=== PATIENT | female | born 1940 | race Caucasian/White ===

== ENCOUNTER 2018-01-22 21:59 | Emergency (ER) | payer MEDICARE, OTHER ==
[~2018-01-22] VITALS: Ht 165.1 cm; Wt 68.0 kg
[~2018-01-22 21:59] MED LIST: ANAS1 PO; ASPI325 PO; AZO CRANBERRY1 EACH PO; Amlodipine Besyl5 MG PO; Aspirin EC325 MG PO; BUTASPCAFT; CIPR500 PO; CYCLOPHOSPHAMIDE1 GM PO; DOXORUBICIN2 MG/1 ML; Fish Oil 10001000 MG PO; INDERAL XL120 MG PO; Imitrex100 MG PO; LOSARTAN POTASS50 MG PO; Macrodantin50 MG PO; NITR100 PO; Norco 5-325 Ta1 EACH PO; Omeprazole20 M1 PO; PROM25 PO; SUMA25; SUMA25 PO; VENL150ER PO; VENLAFAXINE HC150 MG PO; VITAMIN D31000 UNIT PO; Verotin-Gr Cap1 EACH PO; ZEBUTAL 50-3251 EACH PO; Zofran4 MG PO
[2018-01-22 23:27] LABS: BASOPHILS ABSOLUTE AUTO 0.04 K/mm3 (0.00-0.23); BASOPHILS PERCENT AUTO 1 % (0-2); EOSINOPHILS ABSOLUTE AUTO 0.26 K/mm3 (0.00-0.68); EOSINOPHILS PERCENT AUTO 5 % (0-6); Hematocrit 39.4 % (33.0-51.0); Hemoglobin 12.6 g/dL (11.5-16.0); IMMATURE GRAN ABSOLUTE AUTO 0.01 K/mm3 (0.00-0.10); IMMATURE GRAN PERCENT AUTO 0 % (0-1); LYMPHOCYTES ABSOLUTE AUTO 1.49 K/mm3 (0.84-5.20); LYMPHOCYTES PERCENT AUTO 27 % (21-46); MONOCYTES ABSOLUTE AUTO 0.53 K/mm3 (0.16-1.47); MONOCYTES PERCENT AUTO 10 % (4-13); Mean Corpuscular HGB 28.8 pg (26.0-34.0); Mean Corpuscular Volume 90 fL (80-100); Mean Platelet Volume 9.4 fL (9.1-12.4); NEUTROPHILS ABSOLUTE AUTO 3.24 K/mm3 (1.96-9.15); NEUTROPHILS PERCENT AUTO 58 % (41-73); Platelet Count 184 K/mm3 (150-400); RDW Coefficient Variation 12.8 % (11.7-14.2); RDW Standard Deviation 42.6 fL (35.1-46.3); Red Blood Cell Count 4.37 M/mm3 (3.80-5.20); White Blood Cell Count 5.57 K/mm3 (4.00-11.30)
[2018-01-22 23:47] LABS: Alanine Aminotransfer (ALT/SGP 14 U/L (12-78); Albumin, Blood 3.4 g/dL (3.4-5.0); Albumin/Globulin Ratio 1.1 (0.8-1.8); Alk Phos 100 U/L (50-136); Anion Gap 8 mmol/L (6-16); Aspartate Aminotrans (AST/SGOT 10 U/L (12-37); Bilirubin, Total 0.2 mg/dL (0.1-1.0); Blood Urea Nitrogen 17 mg/dL (8-24); Bun/Creatinine Ratio 20.2 (12.0-20.0); CO2, Blood 28 mmol/L (21-32); Calcium, Blood 9.1 mg/dL (8.5-10.1); Chloride, Blood 107 mmol/L (98-108); Creatinine, Blood 0.84 mg/dL (0.40-1.00); Globulin, Blood 3.2 g/dL (2.2-4.0); Glomerular Filtration Rate >60 (60-); Glucose, Blood 108 mg/dL (70-99); Potassium, Blood 3.9 mmol/L (3.5-5.5); Sodium, Blood 143 mmol/L (136-145); Total Protein, Blood 6.6 g/dL (6.4-8.2)
[2018-01-23 00:06] LABS: Troponin I <0.015 ng/mL (0.000-0.040)
[2018-01-23 00:12] LABS: Bilirubin, Urine Neg (Neg); Blood, Urine 5+ (Neg); Glucose Qualitative, Urine Neg (Neg); Ketones, Urine Neg (Neg); Leukocyte Esterase, Urine 2+ (Neg); Nitrite, Urine Neg (Neg); Protein, Urine 2+ (Neg); Source, Urine Clean Catch; Urobilinogen, Urine NORM (Normal)
[2018-01-23 00:25] LABS: Appearance, Urine Hazy (Clear); Color, Urine Yellow (P-Yellow)
[2018-01-23 00:26] LABS: Amorphous Light (0-Heavy); Bacteria Mod /hpf; Red Blood Cells, Urine 25-50 /hpf (0-2); Squamous Epithelial Cells Few /hpf (Few); White Blood Cells, Urine 25-50 /hpf (0-5)
[2018-01-23] MEDS ORDERED: CEPH500 PO ×2 (00:29→00:36)
[2018-06-26] MEDS ORDERED: Omeprazole20 M1 (13:26)
[2018-06-26] MEDS ORDERED: CRANBERRY PLUS1 EAC1 (13:27)
[2018-06-26] MEDS ORDERED: TYLENOL325 MG (13:27)
[2018-07-03] MEDS ORDERED: Aspir 8181 MG (12:44)
== END 2018-01-23 00:46 | disposition home or self-care (01) ==
LOC: ER 21:59
PROVIDERS: Emergency Medicine
DX: N39.0 Urinary tract infection, site not specified (principal); Z88.0 Allergy status to penicillin; Z88.2 Allergy status to sulfonamides; Z88.5 Allergy status to narcotic agent; Z88.8 Allergy status to other drugs, medicaments and biological substances; Z79.899 Other long term (current) drug therapy; Z79.82 Long term (current) use of aspirin; Z85.3 Personal history of malignant neoplasm of breast; I10 Essential (primary) hypertension
CPT/HCPCS: 36415; 70450; 75809; 80053; 81001; 84484; 85025; 87086; 93005; 93010; 99284

== ENCOUNTER 2018-02-18 17:13 | Emergency (ER) | payer MEDICARE, OTHER ==
[~2018-02-18] VITALS: Ht 165.1 cm; Wt 63.5 kg
[~2018-02-18 17:13] MED LIST changes: +CEPH500 PO
[2018-02-18 18:16] LABS: BASOPHILS ABSOLUTE AUTO 0.03 K/mm3 (0.00-0.23); BASOPHILS PERCENT AUTO 0 % (0-2); EOSINOPHILS ABSOLUTE AUTO 0.05 K/mm3 (0.00-0.68); EOSINOPHILS PERCENT AUTO 1 % (0-6); Hematocrit 40.9 % (33.0-51.0); Hemoglobin 13.1 g/dL (11.5-16.0); IMMATURE GRAN ABSOLUTE AUTO 0.02 K/mm3 (0.00-0.10); IMMATURE GRAN PERCENT AUTO 0 % (0-1); LYMPHOCYTES ABSOLUTE AUTO 0.86 K/mm3 (0.84-5.20); LYMPHOCYTES PERCENT AUTO 9 % (21-46); MONOCYTES ABSOLUTE AUTO 0.27 K/mm3 (0.16-1.47); MONOCYTES PERCENT AUTO 3 % (4-13); Mean Corpuscular HGB 29.1 pg (26.0-34.0); Mean Corpuscular Volume 91 fL (80-100); Mean Platelet Volume 9.6 fL (9.1-12.4); NEUTROPHILS ABSOLUTE AUTO 8.17 K/mm3 (1.96-9.15); NEUTROPHILS PERCENT AUTO 87 % (41-73); Platelet Count 193 K/mm3 (150-400); RDW Coefficient Variation 12.7 % (11.7-14.2); RDW Standard Deviation 41.8 fL (35.1-46.3)
[2018-02-18 18:27] LABS: Alanine Aminotransfer (ALT/SGP 21 U/L (12-78); Albumin/Globulin Ratio 1.1 (0.8-1.8); Alk Phos 107 U/L (50-136); Anion Gap 9 mmol/L (6-16); Aspartate Aminotrans (AST/SGOT 15 U/L (12-37); Bilirubin, Total 0.9 mg/dL (0.1-1.0); Blood Urea Nitrogen 17 mg/dL (8-24); CO2, Blood 28 mmol/L (21-32); Calcium, Blood 9.3 mg/dL (8.5-10.1); Chloride, Blood 104 mmol/L (98-108); Creatinine, Blood 0.81 mg/dL (0.40-1.00); Globulin, Blood 3.5 g/dL (2.2-4.0); Glomerular Filtration Rate >60 (60-); Glucose, Blood 150 mg/dL (70-99); Potassium, Blood 4.1 mmol/L (3.5-5.5); Sodium, Blood 141 mmol/L (136-145); Total Protein, Blood 7.5 g/dL (6.4-8.2)
[2018-02-18 18:29] LABS: Source, Urine Clean Catch
[2018-02-18 18:53] LABS: Appearance, Urine Clear (Clear); Bilirubin, Urine Neg (Neg); Blood, Urine 2+ (Neg); Color, Urine Yellow (P-Yellow); Glucose Qualitative, Urine Neg (Neg); Ketones, Urine 2+ (Neg); Leukocyte Esterase, Urine 1+ (Neg); Nitrite, Urine Neg (Neg); Protein, Urine 2+ (Neg); Urobilinogen, Urine NORM (Normal)
[2018-02-18 19:06] LABS: Thyroid Stimulating Hormone 0.705 uIU/mL (0.360-4.800)
[2018-02-18 19:12] LABS: Bacteria Few /hpf; Squamous Epithelial Cells Few /hpf (Few)
[2018-02-18 19:13] LABS: Calcium Oxalate Crystals Few /hpf; Mucus Light (0-Heavy)
[2018-06-26] MEDS ORDERED: Omeprazole20 M1 (13:26)
[2018-06-26] MEDS ORDERED: TYLENOL325 MG (13:27)
[2018-06-26] MEDS ORDERED: CRANBERRY PLUS1 EAC1 (13:27)
[2018-07-03] MEDS ORDERED: Aspir 8181 MG (12:44)
== END 2018-02-19 01:05 | disposition short-term general hospital (02) ==
LOC: ER 17:13
PROVIDERS: Emergency Medicine
DX: I62.00 Nontraumatic subdural hemorrhage, unspecified (principal); Z88.0 Allergy status to penicillin; Z88.2 Allergy status to sulfonamides; Z88.5 Allergy status to narcotic agent; Z79.899 Other long term (current) drug therapy; Z88.8 Allergy status to other drugs, medicaments and biological substances; Z85.3 Personal history of malignant neoplasm of breast
CPT/HCPCS: 36415; 70450; 71045; 80053; 81001; 84443; 85025; 87086; 93005; 93010; 96374; 96375; 99285; J2405; J3010; P9612

== ENCOUNTER → 2019-02-12 | Outpatient (CLI) | payer MEDICARE, OTHER ==
[~2019-02-12] MED LIST changes: +Aspir 8181 MG; +CRANBERRY PLUS1 EAC1; +Omeprazole20 M1; +TYLENOL325 MG
[2019-02-16 14:08] LABS: HPV 16 Negative (Negative); HPV 18 Negative (Negative); HPV OTHER HR TYPES Negative (Negative)
== END | disposition home or self-care (01) ==
LOC: LAB 11:59 → LAB SHORT 11:59
PROVIDERS: Nurse Practitioner Women's Health
DX: Z12.72 Encounter for screening for malignant neoplasm of vagina (principal)
CPT/HCPCS: 87624; G0123

== ENCOUNTER → 2019-07-02 | Outpatient (CLI) | payer MEDICARE, OTHER | END | disposition home or self-care (01) | LOC: LAB 12:11 → LAB SHORT 12:11 | DX: R31.9 Hematuria, unspecified (principal) | CPT/HCPCS: 87086 ==

== ENCOUNTER 2019-07-09 15:02 | Emergency (ER) | payer MEDICARE, OTHER ==
[~2019-07-09] VITALS: Ht 162.6 cm; Wt 69.8 kg
[2019-07-09 16:09] LABS: BASOPHILS ABSOLUTE AUTO 0.06 K/mm3 (0.00-0.23); BASOPHILS PERCENT AUTO 1 % (0-2); EOSINOPHILS ABSOLUTE AUTO 0.11 K/mm3 (0.00-0.68); EOSINOPHILS PERCENT AUTO 1 % (0-6); Hematocrit 41.4 % (33.0-51.0); Hemoglobin 13.4 g/dL (11.5-16.0); IMMATURE GRAN ABSOLUTE AUTO 0.02 K/mm3 (0.00-0.10); IMMATURE GRAN PERCENT AUTO 0 % (0-1); LYMPHOCYTES ABSOLUTE AUTO 1.59 K/mm3 (0.84-5.20); LYMPHOCYTES PERCENT AUTO 19 % (21-46); MONOCYTES ABSOLUTE AUTO 0.57 K/mm3 (0.16-1.47); MONOCYTES PERCENT AUTO 7 % (4-13); Mean Corpuscular HGB Conc 32.4 g/dL (31.5-36.5); Mean Corpuscular Volume 93 fL (80-100); Mean Platelet Volume 9.9 fL (9.1-12.4); NEUTROPHILS ABSOLUTE AUTO 5.93 K/mm3 (1.96-9.15); NEUTROPHILS PERCENT AUTO 72 % (41-73); Platelet Count 199 K/mm3 (150-400); RDW Coefficient Variation 12.8 % (11.7-14.2); RDW Standard Deviation 43.7 fL (35.1-46.3); Red Blood Cell Count 4.46 M/mm3 (3.80-5.20); White Blood Cell Count 8.28 K/mm3 (4.00-11.30)
[2019-07-09 16:29] LABS: Albumin, Blood 3.6 g/dL (3.4-5.0); Albumin/Globulin Ratio 1.1 (0.8-1.8); Bilirubin, Total 0.7 mg/dL (0.1-1.0); Bun/Creatinine Ratio 17.8 (12.0-20.0); Calcium, Blood 9.3 mg/dL (8.5-10.1); Creatinine, Blood 1.07 mg/dL (0.40-1.00); Globulin, Blood 3.4 g/dL (2.2-4.0); Potassium, Blood 3.6 mmol/L (3.5-5.5)
[2019-07-09 17:17] LABS: Source, Urine Catheter
[2019-07-09 17:38] LABS: Bilirubin, Urine Neg (Neg); Blood, Urine 1+ (Neg); Glucose Qualitative, Urine Neg (Neg); Ketones, Urine Neg (Neg); Leukocyte Esterase, Urine 1+ (Neg); Nitrite, Urine Neg (Neg); Protein, Urine Neg (Neg); Specific Gravity, Urine 1.015 (1.003-1.022); Urobilinogen, Urine NORM (Normal)
[2019-07-09 17:45] LABS: Appearance, Urine Hazy (Clear); Color, Urine Yellow (P-Yellow)
[2019-07-09 17:46] LABS: Bacteria Few /hpf; Red Blood Cells, Urine 0-2 /hpf (0-2); Squamous Epithelial Cells Few /hpf (Few)
== END 2019-07-09 19:50 | disposition home or self-care (01) ==
LOC: ER 15:02
PROVIDERS: Physician Assistant
DX: R51 Headache (principal); I10 Essential (primary) hypertension; Z85.3 Personal history of malignant neoplasm of breast; Z98.2 Presence of cerebrospinal fluid drainage device
CPT/HCPCS: 36415; 70250; 70450; 71045; 74018; 80053; 81001; 85025; 87086; 93005; 93010; 96374; 99284-25; J2405; P9612

== ENCOUNTER → 2019-12-29 | Outpatient (CLI) | payer OTHER | END | disposition home or self-care (01) | LOC: LAB SHORT 18:06 → LAB 18:06 | DX: R32 Unspecified urinary incontinence (principal); R82.79 Other abnormal findings on microbiological examination of urine | CPT/HCPCS: 87077; 87086; 87186 ==

== ENCOUNTER → 2020-02-02 | Outpatient (CLI) | payer OTHER | LOC: LAB SHORT 18:10 → LAB 18:10 | DX: R82.79 Other abnormal findings on microbiological examination of urine (principal) | CPT/HCPCS: 87077; 87086; 87186 ==

== ENCOUNTER → 2020-03-11 | Outpatient (CLI) | payer OTHER | END | disposition home or self-care (01) | LOC: LAB SHORT 14:31 → LAB 14:31 | DX: R32 Unspecified urinary incontinence (principal); R82.79 Other abnormal findings on microbiological examination of urine | CPT/HCPCS: 87077; 87086; 87186 ==

== ENCOUNTER 2020-03-31 18:21 | Emergency (ER) | payer OTHER ==
[~2020-03-31] VITALS: Ht 162.6 cm; Wt 68.0 kg
[2020-03-31 19:06] LABS: BASOPHILS ABSOLUTE AUTO 0.05 K/mm3 (0.00-0.23); BASOPHILS PERCENT AUTO 0 % (0-2); EOSINOPHILS ABSOLUTE AUTO 0.04 K/mm3 (0.00-0.68); EOSINOPHILS PERCENT AUTO 0 % (0-6); Hematocrit 43.9 % (33.0-51.0); Hemoglobin 14.1 g/dL (11.5-16.0); IMMATURE GRAN ABSOLUTE AUTO 0.03 K/mm3 (0.00-0.10); IMMATURE GRAN PERCENT AUTO 0 % (0-1); LYMPHOCYTES ABSOLUTE AUTO 1.24 K/mm3 (0.84-5.20); LYMPHOCYTES PERCENT AUTO 11 % (21-46); MONOCYTES ABSOLUTE AUTO 0.43 K/mm3 (0.16-1.47); MONOCYTES PERCENT AUTO 4 % (4-13); Mean Corpuscular HGB 29.6 pg (26.0-34.0); Mean Corpuscular HGB Conc 32.1 g/dL (31.5-36.5); Mean Corpuscular Volume 92 fL (80-100); Mean Platelet Volume 9.6 fL (9.1-12.4); NEUTROPHILS ABSOLUTE AUTO 9.46 K/mm3 (1.96-9.15); NEUTROPHILS PERCENT AUTO 84 % (41-73); Platelet Count 217 K/mm3 (150-400); Red Blood Cell Count 4.77 M/mm3 (3.80-5.20); White Blood Cell Count 11.25 K/mm3 (4.00-11.30)
[2020-03-31 19:35] LABS: Alanine Aminotransfer (ALT/SGP 15 U/L (12-78); Albumin, Blood 3.4 g/dL (3.4-5.0); Albumin/Globulin Ratio 0.9 (0.8-1.8); Alk Phos 89 U/L (50-136); Anion Gap 10 mmol/L (6-16); Aspartate Aminotrans (AST/SGOT 20 U/L (12-37); Bilirubin, Total 0.5 mg/dL (0.1-1.0); Blood Urea Nitrogen 19 mg/dL (8-24); Bun/Creatinine Ratio 20.6 (12.0-20.0); CO2, Blood 20 mmol/L (21-32); Calcium, Blood 9.1 mg/dL (8.5-10.1); Chloride, Blood 114 mmol/L (98-108); Creatinine, Blood 0.92 mg/dL (0.40-1.00); Globulin, Blood 3.6 g/dL (2.2-4.0); Glomerular Filtration Rate >60 (60-); Glucose, Blood 179 mg/dL (70-99); Potassium, Blood 4.1 mmol/L (3.5-5.5); Sodium, Blood 144 mmol/L (136-145); Troponin I <0.015 ng/mL (0.000-0.040)
== END 2020-03-31 21:07 | disposition home or self-care (01) ==
LOC: ER 18:21
PROVIDERS: Physician Assistant
DX: I47.1 Supraventricular tachycardia (principal); Z88.0 Allergy status to penicillin; Z88.2 Allergy status to sulfonamides; Z88.8 Allergy status to other drugs, medicaments and biological substances; Z88.5 Allergy status to narcotic agent; Z79.899 Other long term (current) drug therapy; Z79.82 Long term (current) use of aspirin
CPT/HCPCS: 36415; 71045; 80053; 83735; 84484; 85025; 93005; 93010; 96374; 99285-25

== ENCOUNTER 2020-05-09 17:16 | Emergency (ER) | payer OTHER ==
[~2020-05-09] VITALS: Ht 162.6 cm; Wt 68.0 kg
== END 2020-05-09 19:45 | disposition home or self-care (01) ==
LOC: ER 17:16
DX: S09.90XA Unspecified injury of head, initial encounter (principal); Z88.0 Allergy status to penicillin; Z88.2 Allergy status to sulfonamides; Z88.5 Allergy status to narcotic agent; Z88.8 Allergy status to other drugs, medicaments and biological substances; Z79.899 Other long term (current) drug therapy; Z79.82 Long term (current) use of aspirin; V43.52XA Car driver injured in collision with other type car in traffic accident, initial encounter
CPT/HCPCS: 70450; 72125; 99284-25

== ENCOUNTER 2020-08-01 17:13 | Inpatient (IN) | payer OTHER ==
[~2020-08-01] VITALS: Ht 165.1 cm; Wt 70.0 kg
[~2020-08-01 17:13] MED LIST changes: -OMEP20ER PO
[2020-08-01 18:08] LABS: BASOPHILS ABSOLUTE AUTO 0.07 K/mm3 (0.00-0.23); BASOPHILS PERCENT AUTO 1 % (0-2); EOSINOPHILS ABSOLUTE AUTO 0.26 K/mm3 (0.00-0.68); EOSINOPHILS PERCENT AUTO 2 % (0-6); Hemoglobin 13.1 g/dL (11.5-16.0); IMMATURE GRAN ABSOLUTE AUTO 0.06 K/mm3 (0.00-0.10); IMMATURE GRAN PERCENT AUTO 1 % (0-1); LYMPHOCYTES ABSOLUTE AUTO 1.45 K/mm3 (0.84-5.20); LYMPHOCYTES PERCENT AUTO 11 % (21-46); MONOCYTES ABSOLUTE AUTO 0.73 K/mm3 (0.16-1.47); MONOCYTES PERCENT AUTO 6 % (4-13); Mean Corpuscular HGB 29.3 pg (26.0-34.0); Mean Corpuscular HGB Conc 31.2 g/dL (31.5-36.5); Mean Corpuscular Volume 94 fL (80-100); Mean Platelet Volume 9.7 fL (9.1-12.4); NEUTROPHILS ABSOLUTE AUTO 10.34 K/mm3 (1.96-9.15); NEUTROPHILS PERCENT AUTO 80 % (41-73); Platelet Count 206 K/mm3 (150-400); RDW Coefficient Variation 12.9 % (11.7-14.2); RDW Standard Deviation 44.4 fL (35.1-46.3); Red Blood Cell Count 4.47 M/mm3 (3.80-5.20); White Blood Cell Count 12.91 K/mm3 (4.00-11.30)
[2020-08-01] MEDS ORDERED: OMEP20ER PO (18:09)
[2020-08-01] MEDS ORDERED: CIPR500 PO (18:10)
[2020-08-01] MEDS ORDERED: ANAS1 PO (18:10)
[2020-08-01 18:25] LABS: Albumin, Blood 3.5 g/dL (3.4-5.0); Albumin/Globulin Ratio 0.7 (0.8-1.8); Bilirubin, Total 0.6 mg/dL (0.1-1.0); Bun/Creatinine Ratio 18.1 (12.0-20.0); Calcium, Blood 9.4 mg/dL (8.5-10.1); Creatinine, Blood 1.05 mg/dL (0.40-1.00); Globulin, Blood 4.9 g/dL (2.2-4.0); Potassium, Blood 3.9 mmol/L (3.5-5.5); Total Protein, Blood 8.4 g/dL (6.4-8.2)
--- NOTE | 2020-08-01 22:05 | NUR ---
ARRIVAL TO UNIT PT ARRIVED TO UNIT FROM ER VIA GURNEY. PT SLIDE FROM GURNEY TO BED MODERATE PAIN WITH TRANSFER, PAIN REPORTED AT 08/11. PT AA0X4 WITH ELEVATED BP. MEDICATED FOR PAIN AND FOLLOW UP BP DOWN TO 150 SYSTOLIC. PT STATES PAIN TOLERABLE. DENIES NAUSEA OR CHEST PAIN. TELE BOX PLACED. AND PT CURRENTLY SITITNG IN SEMI FOWLERS ON 3L OXYGEN.
--- NOTE | 2020-08-02 04:20 | NUR ---
SHIFT SUMMARY L RIB FX WITH SMALL PNEUMO. AA0X4, VSS. PT DENIES SOB OR CP DURING SHIFT. PAIN WITH MOVEMENT UPON ARRIVAL, MEDICATED PER EMAR AND PT STATES RELIEF WITH A PAIN LEVEL AT 7/10. LUNG SOUNDS SLIGHTLY DIMINISHED IN LLL, CLEAR OTHERWISE. NO BRUISING NOTED WITH SMALL ABRASION UNDER LEFT BREAST ON SIDE OF CHEST. PT HAS BEEN SLEEPING IN BED DURING ROUNDING, DENIES FURTHER NEEDS AT THIS TIME.
[2020-08-02 04:41] LABS: BASOPHILS ABSOLUTE AUTO 0.04 K/mm3 (0.00-0.23); BASOPHILS PERCENT AUTO 0 % (0-2); EOSINOPHILS ABSOLUTE AUTO 0.03 K/mm3 (0.00-0.68); EOSINOPHILS PERCENT AUTO 0 % (0-6); Hemoglobin 13.8 g/dL (11.5-16.0); IMMATURE GRAN ABSOLUTE AUTO 0.02 K/mm3 (0.00-0.10); IMMATURE GRAN PERCENT AUTO 0 % (0-1); LYMPHOCYTES ABSOLUTE AUTO 1.45 K/mm3 (0.84-5.20); LYMPHOCYTES PERCENT AUTO 14 % (21-46); MONOCYTES ABSOLUTE AUTO 0.62 K/mm3 (0.16-1.47); MONOCYTES PERCENT AUTO 6 % (4-13); Mean Corpuscular HGB 29.6 pg (26.0-34.0); Mean Corpuscular HGB Conc 31.4 g/dL (31.5-36.5); Mean Corpuscular Volume 94 fL (80-100); Mean Platelet Volume 9.6 fL (9.1-12.4); NEUTROPHILS PERCENT AUTO 80 % (41-73); Platelet Count 218 K/mm3 (150-400); RDW Coefficient Variation 12.9 % (11.7-14.2); RDW Standard Deviation 44.5 fL (35.1-46.3); Red Blood Cell Count 4.67 M/mm3 (3.80-5.20); White Blood Cell Count 10.56 K/mm3 (4.00-11.30)
[2020-08-02 04:56] LABS: Albumin, Blood 3.6 g/dL (3.4-5.0); Anion Gap 3 mmol/L (6-16); Blood Urea Nitrogen 18 mg/dL (8-24); Bun/Creatinine Ratio 17.6 (12.0-20.0); CO2, Blood 31 mmol/L (21-32); Calcium, Blood 9.6 mg/dL (8.5-10.1); Chloride, Blood 107 mmol/L (98-108); Creatinine, Blood 1.02 mg/dL (0.40-1.00); Glomerular Filtration Rate 56 (60-); Glucose, Blood 133 mg/dL (70-99); Phosphorus, Blood 5.2 mg/dL (2.5-4.9); Potassium, Blood 5.1 mmol/L (3.5-5.5); Sodium, Blood 141 mmol/L (136-145)
--- NOTE | 2020-08-02 05:15 | NUR ---
SPOKE TO DR RIVERA REGARDING PTS PAIN LEVEL AFTER RECEIVING HER PRN MEDS. PAIN REPORTED 8/10 AND GRIMACE ON PT'S FACE. NEW ORDERS RECIEVED FOR 25-50MCG PRN. WILL ADMINISTER AND CONTINUE TO MONITOR PT FOR PAIN.
--- NOTE | 2020-08-02 11:18 | NUR ---
Patient is sitting up in bed. Patient's face will grimace with every move or deep breath. Patient talks to me about her family, her latoya (Crystal) and her fall. Patient tells me many stories of her life growing up in [facility] up into the present. Patient does not speak of her medical history but seems to be encouraged by her own stories. Patient does not show any signs of spiritual distress but enjoys discussion centered around her [employer] Lat[employer]. I reinforce helpful attitudes and practices and provide therapeutic listening, companionship and prayer. Patient displays evidence of being encouraged. I will continue to remain available to patient and family.
[2020-08-02 11:32] LABS: Source, Urine Voided
[2020-08-02 11:36] LABS: Appearance, Urine Turbid (Clear); Bilirubin, Urine Neg (Neg); Blood, Urine 5+ (Neg); Color, Urine Yellow (P-Yellow); Glucose Qualitative, Urine Neg (Neg); Ketones, Urine Neg (Neg); Leukocyte Esterase, Urine 3+ (Neg); Nitrite, Urine Neg (Neg); Protein, Urine 3+ (Neg); Urobilinogen, Urine NORM (Normal)
[2020-08-02 11:47] LABS: Bacteria Mod /hpf; Red Blood Cells, Urine TNTC /hpf (0-2); Squamous Epithelial Cells Not Seen /hpf (Few); White Blood Cells, Urine TNTC /hpf (0-5)
--- NOTE | 2020-08-02 13:45 | NUR ---
OT IN TO SEE PT.
--- NOTE | 2020-08-02 15:18 | NUR ---
SUMMARY PT SITTING UP IN CHAIR. MEDICATED PT T/O SHIFT FOR PAIN TO L RIBS. REPORTS 06/10 TOLERABLE. PT WORKED W/PT AND OT. REPORTS MOST PAINFUL MOVING FROM LYING TO SITTING POSITION.
--- NOTE | 2020-08-02 16:02 | NUR ---
ASSUMED PT CARE AT THIS TIME
--- NOTE | 2020-08-03 06:29 | NUR ---
PT VSS, SATS >90% ON 1-2L NC. LUNGS DIM, RESP SHALLOW. PT ENC TO USE I/S. CREPITUS NOTED BELOW LEFT SCAPULA. REPEAT CXR COMPLETED THIS AM. PT REMAINS VERY PAINFUL W/MVMT, NEEDING ENCOURAGEMENT TO MOBILIZE. PO FLUIDS ENC W/ROUNDINGS.
--- NOTE | 2020-08-03 07:35 | NUR ---
pt reports pain with any movement in bed not in with breathing biox 96-97% on 2l nc shallow breaths pt req oain meds 0.5 mg dilaudid given pt drowsy
--- NOTE | 2020-08-03 08:42 | NUR ---
ASSUMED CARE OF PT AT THIS TIME. PT GIVEN MORNING MEDS. ENCOURAGING TO DEEP BREATHE AND USE I/S. CONT BIOX IN PLACE AND PT SATTING 96% ON 2L VIA NC. PT APPEARS TO BE UNCOMFORTABLE AND PAINFUL WITH DEEP BREATHS. WILL CONT TO MEDICATE FOR PAIN PRN.
--- NOTE | 2020-08-03 16:12 | NUR ---
SHIFT SUMMARY NO ACUTE CHANGES TODAY. PT DID WELL WITH PT/OT TODAY. PT STILL VERY PAINFUL WITH UPPER BODY MOBILITY. 0.5 MG IV DILAUDID FOR PAIN PRN. ENCOURAGING DEEP BREATHING AND I/S USE. CONT BIOX IN PLACE. 2L O2 VIA NC SATTING AT 96%. ASHLEY REG DIET. 1 MIN ASSIST TO BSC. DISCHARGE PLANNING FOR SNF. PT USES CALL LIGHT APPROPRIATELY.
--- NOTE | 2020-08-04 04:33 | NUR ---
SHIFT SUMMARY PT RESTED WELL T/O NIGHT. AAOX4/NEZ PERCE. PT WITH DISCOMFORT WITH MINIMAL MOVEMENT + DEEP BREATHING, DECREASED WITH 1 ROXICIDONE Q4H + 0.5MG IV DILAUDID X2 FOR BREAKTHROUGH. NO NAUSEA/EMESIS. BRUISING TO LEFT RIBS NOTED, NO ACUTE CHANGE THIS SHIFT. 2L VIA NC, ENCOURAGE IS USE. SCDs FOR DVT PREVENTION. PT CURRENTLY RESTING WITH CALL LIGHT IN REACH.
--- NOTE | 2020-08-04 15:24 | NUR ---
SHIFT SUMMARY: PATIENT HAS BEEN ALERT AND ORIENTED X4 THROUGHOUT SHIFT. SHE HAS HAD STABLE VITAL SIGNS AND HAS BEEN ON ROOM AIR WITH HER OXYGEN SATS BEING >90%. SHE HAS [place] SO SPEAKING LOUDLY HELPS TO COMMUNICATE WITH HER. PT IS AT PEAK PAIN WITH MOVEMENT TO THE LEFT, AND DEEP BREATHING. PAIN IS DECREASED WITH 1 NORCO TWO TIMES. SCDs ARE ON FOR DVT PREVENTION. PATIENT IS TALKING WITH IN THE ROOM. CALL LIGHT IS WITHIN REACH. WILL CONTINUE TO MONITOR UNTIL ONCOMING NIGHTSHIFT NURSE COME TO RECIEVE REPORT.
--- NOTE | 2020-08-05 05:13 | NUR ---
SHIFT SUMMARY PT RESTED WELL T/O NIGHT. AAOX4/WALES. DISCOMFORT CONTROLLED WITH 1 NORCO Q4-5H. NO NAUSEA/EMESIS. ON RA, LUNG SOUNDS CLEAR, DIMINISHED IN BASES BILATERALLY, ENCOURAGE DEEP BREATHING + IS USE. PT OOB 1 PERSON MODERATE ASSIST TO BSC. NO ACUTE CHANGES OVER NIGHT. PT CURRENTLY RESTING IN BED WITH CALL LIGHT IN REACH.
--- NOTE | 2020-08-05 13:48 | NUR ---
spoke with patient regarding last bm., pt states had a large formed bm on 08/04/20
--- NOTE | 2020-08-05 14:48 | NUR ---
report phoned to Tania FLANAGAN at [facility]. pt discharged with transport via [facility] at [phone]
--- NOTE | 2020-08-05 16:25 | NUR ---
PATIENT PHONE PROJECTS MANAGER FOUND IN ROOM POST DISCHARGE. PHONE CALL MADE AND SPOKE WITH FAMILY MEMBER SATINDER SCHULTZ WHO WILL HAVE PROJECTS MANAGER PICKED UP AT [facility]
== END 2020-08-05 14:46 | disposition home or self-care (01) | DRG 199 ==
LOC: ER 17:13 → SURS 17:14
PROVIDERS: Emergency Medicine; Family Medicine; Internal Medicine; ADMIT Surgery
DX: S27.0XXA Traumatic pneumothorax, initial encounter (principal); J96.01 Acute respiratory failure with hypoxia; S22.42XA Multiple fractures of ribs, left side, initial encounter for closed fracture; N17.9 Acute kidney failure, unspecified; N39.0 Urinary tract infection, site not specified; Z20.828 Contact with and (suspected) exposure to other viral communicable diseases; W19.XXXA Unspecified fall, initial encounter; I12.9 Hypertensive chronic kidney disease with stage 1 through stage 4 chronic kidney disease, or unspecified chronic kidney disease; N18.3 Chronic kidney disease, stage 3 (moderate); R54 Age-related physical debility; Z85.3 Personal history of malignant neoplasm of breast; K21.9 Gastro-esophageal reflux disease without esophagitis; F32.9 Major depressive disorder, single episode, unspecified
CPT/HCPCS: 36415; 71046; 71250; 74177; 80053; 80069; 81001; 84484; 85025; 86850; 86900; 86901; 87077; 87086; 87186; 94762; 96374; 96375; 96376; 97110; 97116; 97162; 97166; 97530; 97535; 99284-25; A9270; A9270-GY; G0378; J1170; J2270; J2405; J3010; Q9967; U0002

== ENCOUNTER → 2020-08-01 | Outpatient (CLI) | payer OTHER ==
[~2020-08-01] MED LIST changes: -Aspir 8181 MG; +Aspir 8181 MG PO; +OMEP20ER PO
== END ==
LOC: LAB SHORT 19:24 → LAB 19:24
DX: N39.498 Other specified urinary incontinence (principal); R82.998 Other abnormal findings in urine
CPT/HCPCS: 87077; 87086; 87147; 87186

== ENCOUNTER 2020-11-17 12:42 | Emergency (ER) | payer OTHER ==
[~2020-11-17] VITALS: Ht 162.6 cm; Wt 63.5 kg
[~2020-11-17 12:42] MED LIST changes: +OMEP20ER PO
[2020-11-17 13:40] LABS: BASOPHILS ABSOLUTE AUTO 0.06 K/mm3 (0.00-0.23); BASOPHILS PERCENT AUTO 0 % (0-2); EOSINOPHILS ABSOLUTE AUTO 0.17 K/mm3 (0.00-0.68); EOSINOPHILS PERCENT AUTO 1 % (0-6); Hematocrit 47.4 % (33.0-51.0); Hemoglobin 15.8 g/dL (11.5-16.0); IMMATURE GRAN ABSOLUTE AUTO 0.04 K/mm3 (0.00-0.10); IMMATURE GRAN PERCENT AUTO 0 % (0-1); LYMPHOCYTES PERCENT AUTO 12 % (21-46); MONOCYTES ABSOLUTE AUTO 0.74 K/mm3 (0.16-1.47); MONOCYTES PERCENT AUTO 5 % (4-13); Mean Corpuscular HGB 29.4 pg (26.0-34.0); Mean Corpuscular HGB Conc 33.3 g/dL (31.5-36.5); Mean Corpuscular Volume 88 fL (80-100); Mean Platelet Volume 9.6 fL (9.1-12.4); NEUTROPHILS ABSOLUTE AUTO 11.68 K/mm3 (1.96-9.15); NEUTROPHILS PERCENT AUTO 81 % (41-73); Platelet Count 262 K/mm3 (150-400); RDW Standard Deviation 42.1 fL (35.1-46.3); Red Blood Cell Count 5.38 M/mm3 (3.80-5.20); White Blood Cell Count 14.49 K/mm3 (4.00-11.30)
[2020-11-17 13:50] LABS: Albumin, Blood 3.9 g/dL (3.4-5.0); Bilirubin, Total 1.2 mg/dL (0.1-1.0); Bun/Creatinine Ratio 19.4 (12.0-20.0); Creatinine, Blood 0.98 mg/dL (0.40-1.00); Globulin, Blood 3.9 g/dL (2.2-4.0); Potassium, Blood 3.8 mmol/L (3.5-5.5); Total Protein, Blood 7.8 g/dL (6.4-8.2)
[2020-11-17 18:31] LABS: Source, Urine Clean Catch
[2020-11-17 18:33] LABS: Appearance, Urine Cloudy (Clear); Bilirubin, Urine Neg (Neg); Blood, Urine 4+ (Neg); Color, Urine Yellow (P-Yellow); Glucose Qualitative, Urine Neg (Neg); Ketones, Urine 3+ (Neg); Leukocyte Esterase, Urine 3+ (Neg); Nitrite, Urine Neg (Neg); Protein, Urine 3+ (Neg); Specific Gravity, Urine 1.015 (1.003-1.022); Urobilinogen, Urine NORM (Normal)
[2020-11-17 18:42] LABS: White Blood Cells, Urine TNTC /hpf (0-5)
[2020-11-17 18:43] LABS: Bacteria Mod /hpf; Squamous Epithelial Cells Few /hpf (Few)
[2020-11-17] MEDS ORDERED: AMIT10 PO (19:08)
[2020-11-17] MEDS ORDERED: CEPH500 PO (19:22)
[2020-11-17] MEDS ORDERED: ONDA4 PO (19:22)
== END 2020-11-17 19:37 | disposition home or self-care (01) ==
LOC: ER 12:42
PROVIDERS: Emergency Medicine; Physician Assistant
DX: N39.0 Urinary tract infection, site not specified (principal); Z88.0 Allergy status to penicillin; Z88.2 Allergy status to sulfonamides; Z88.1 Allergy status to other antibiotic agents; Z88.5 Allergy status to narcotic agent; Z79.82 Long term (current) use of aspirin; Z79.899 Other long term (current) drug therapy; Z87.442 Personal history of urinary calculi
CPT/HCPCS: 36415; 74177; 80053; 81001; 83690; 85025; 96361; 96374; 99285-25; J2405; J7030; Q9967

== ENCOUNTER → 2021-05-08 | Outpatient (CLI) | payer OTHER ==
[~2021-05-08] MED LIST changes: +AMIT10 PO; +ONDA4 PO
== END | disposition home or self-care (01) ==
LOC: LAB 19:21 → LAB SHORT 19:21
DX: N39.498 Other specified urinary incontinence (principal); R30.0 Dysuria
CPT/HCPCS: 87077; 87086; 87186

== ENCOUNTER → 2021-06-01 | Outpatient (CLI) | payer OTHER | END | disposition home or self-care (01) | LOC: LAB SHORT 19:08 → LAB 19:08 | DX: N39.0 Urinary tract infection, site not specified (principal) | CPT/HCPCS: 87077; 87086; 87186 ==

== ENCOUNTER → 2021-07-03 | Outpatient (CLI) | payer OTHER | END | disposition home or self-care (01) | LOC: LAB 13:30 → LAB SHORT 13:30 | DX: N30.01 Acute cystitis with hematuria (principal) | CPT/HCPCS: 87077; 87086; 87186 ==

== ENCOUNTER → 2021-07-20 | Outpatient (CLI) | payer OTHER | END | disposition home or self-care (01) | LOC: LAB SHORT 14:48 → LAB 14:48 | DX: N39.0 Urinary tract infection, site not specified (principal) | CPT/HCPCS: 87086 ==

== ENCOUNTER 2021-09-21 06:57 | Inpatient (IN) | payer OTHER ==
[~2021-09-21] VITALS: Ht 162.6 cm; Wt 74.1 kg
[2021-09-21 07:28] LABS: BASOPHILS ABSOLUTE AUTO 0.03 K/mm3 (0.00-0.23); BASOPHILS PERCENT AUTO 0 % (0-2); EOSINOPHILS PERCENT AUTO 0 % (0-6); Hematocrit 37.4 % (33.0-51.0); Hemoglobin 12.1 g/dL (11.5-16.0); IMMATURE GRAN ABSOLUTE AUTO 0.08 K/mm3 (0.00-0.10); IMMATURE GRAN PERCENT AUTO 1 % (0-1); LYMPHOCYTES ABSOLUTE AUTO 0.58 K/mm3 (0.84-5.20); LYMPHOCYTES PERCENT AUTO 4 % (21-46); MONOCYTES ABSOLUTE AUTO 0.75 K/mm3 (0.16-1.47); MONOCYTES PERCENT AUTO 5 % (4-13); Mean Corpuscular HGB 29.2 pg (26.0-34.0); Mean Corpuscular HGB Conc 32.4 g/dL (31.5-36.5); Mean Corpuscular Volume 90 fL (80-100); Mean Platelet Volume 9.9 fL (9.1-12.4); NEUTROPHILS ABSOLUTE AUTO 14.79 K/mm3 (1.96-9.15); NEUTROPHILS PERCENT AUTO 91 % (41-73); Platelet Count 144 K/mm3 (150-400); RDW Coefficient Variation 13.4 % (11.7-14.2); RDW Standard Deviation 45.1 fL (35.1-46.3); Red Blood Cell Count 4.14 M/mm3 (3.80-5.20); White Blood Cell Count 16.23 K/mm3 (4.00-11.30)
[2021-09-21 07:42] LABS: Albumin, Blood 2.7 g/dL (3.4-5.0); Albumin/Globulin Ratio 0.7 (0.8-1.8); Bun/Creatinine Ratio 17.2 (12.0-20.0); Calcium, Blood 8.6 mg/dL (8.5-10.1); Creatinine, Blood 1.28 mg/dL (0.40-1.00); Globulin, Blood 3.8 g/dL (2.2-4.0); Potassium, Blood 3.7 mmol/L (3.5-5.5); Total Protein, Blood 6.5 g/dL (6.4-8.2)
[2021-09-21 09:20] LABS: Source, Urine Clean Catch
[2021-09-21 09:30] LABS: Bilirubin, Urine Neg (Neg); Blood, Urine 5+ (Neg); Glucose Qualitative, Urine Neg (Neg); Ketones, Urine 4+ (Neg); Leukocyte Esterase, Urine 2+ (Neg); Nitrite, Urine Neg (Neg); Protein, Urine 3+ (Neg); Urobilinogen, Urine NORM (Normal)
[2021-09-21 10:04] LABS: Appearance, Urine Hazy (Clear); Bacteria Few /hpf; Color, Urine Yellow (P-Yellow); Red Blood Cells, Urine TNTC /hpf (0-2); Squamous Epithelial Cells Few /hpf (Few); White Blood Cells, Urine TNTC /hpf (0-5)
[2021-09-21] MEDS ORDERED: TRIM100 PO (11:34)
[2021-09-21] MEDS ORDERED: VENL150ER PO (12:30)
[2021-09-21] MEDS ORDERED: Amitriptyline H10 MG PO (12:31)
[2021-09-21] MEDS ORDERED: CEPH500 PO (12:32)
[2021-09-21] MEDS ORDERED: ONDA4ODT MM (12:33)
[2021-09-22 04:35] LABS: Hematocrit 34.9 % (33.0-51.0); Hemoglobin 11.3 g/dL (11.5-16.0); Mean Corpuscular HGB 29.7 pg (26.0-34.0); Mean Corpuscular HGB Conc 32.4 g/dL (31.5-36.5); Mean Corpuscular Volume 92 fL (80-100); Mean Platelet Volume 9.7 fL (9.1-12.4); Platelet Count 115 K/mm3 (150-400); RDW Coefficient Variation 13.6 % (11.7-14.2); RDW Standard Deviation 46.5 fL (35.1-46.3); Red Blood Cell Count 3.81 M/mm3 (3.80-5.20); White Blood Cell Count 15.33 K/mm3 (4.00-11.30)
[2021-09-22 04:54] LABS: Albumin, Blood 1.9 g/dL (3.4-5.0); Albumin/Globulin Ratio 0.5 (0.8-1.8); Bilirubin, Total 0.9 mg/dL (0.1-1.0); Bun/Creatinine Ratio 16.3 (12.0-20.0); Calcium, Blood 7.7 mg/dL (8.5-10.1); Creatinine, Blood 1.29 mg/dL (0.40-1.00); Globulin, Blood 3.6 g/dL (2.2-4.0); Magnesium, Blood 1.9 mg/dL (1.6-2.4); Potassium, Blood 3.6 mmol/L (3.5-5.5); Total Protein, Blood 5.5 g/dL (6.4-8.2)
[2021-09-22 05:06] LABS: BAND PERCENT MAN 16 % (0-8); BASOPHILS PERCENT MAN 0 % (0-2); EOSINOPHILS PERCENT MAN 0 % (0-6); LYMPHOCYTES ABSOLUTE MAN 0.45 K/mm3 (0.84-5.20); LYMPHOCYTES PERCENT MAN 3 % (21-46); MONOCYTES ABSOLUTE MAN 0.45 K/mm3 (0.16-1.47); MONOCYTES PERCENT MAN 3 % (4-13); NEUTROPHILS ABSOLUTE MAN 14.41 K/mm3 (1.96-9.15); SEG NEUTROPHILS PERCENT MAN 78 % (41-73); TOTAL CELLS COUNTED 100
--- NOTE | 2021-09-22 12:57 | NUR ---
CARE NOTE PT ALERT AND ORIENTED X 4. SHE IS PLEASANT AND COOPERATIVE W/ CARE BUT IS HARD OF HEARING. PT DENIED CHEST PAIN BUT REPORTED PAIN IN PELVIC AREA/LOWER ABD. PT IS AFEBRILE THIS AM., AFIB 70/80'S. THIS NURSE CONSULTED DR. NOE ABOUT TURNING DILTIAZEM DRIP OFF AT APPROX. 1130 WELL PREMEDICATING PT WITH BENADRYL PRIOR TO VANCOMYCIN ADMINISTRATION. DR STATED OK TO PREMEDICATE BUT MONITOR FOR SIGNS OF ALLERGY. PHARMACY MADE AWARE OF PLAN TO CONTINUE WITH VANCOMYCIN THERAPY. DR NOE ALSO STATED OK TO GIVE PROPANOLOL THIS AM TO CONTOL HR. PT HAD BLOODY URINE OUTPUT IN BEDSIDE COMMODE, AMBULATED TO COMMODE 2 PERSON SBA. PT NOW SLEEPING, CALL LIGHT IN REACH. WILL CONTINUE TO MONITOR.
--- NOTE | 2021-09-22 18:07 | NUR ---
SHIFT SUMMARY PT IS ALERT AND ORIENTED X 4 BUT HARD OF HEARING. HR AFIB IN 100-ONE TEENS. THIS NURSE UPDATED DR. NOE ABOUT HR STATUS AND PRN ORDER FOR LOPRESSOR IN EMAR FOR HR GREATER 125. THIS EVENING PT HAD FEVER OF 100.3 AND PAIN 7/10 IN PELVIC REGION. TYLENOL GIVEN AND PT IS NOW AFEBRILE, PAIN NOW 4/10. WILL CONTINUE TO MONITOR. PT HAS CONTINUED TO DENY CHEST PAIN/PRESSURE. NS INFUSING 125ML/HR PER EMAR ORDERS IN LEFT AC. ATTENDS IN PLACE, CLEAN AND DRY, PT UTILIZED BEDSIDE COMMODE 2 PERSON SBA. PT STATED THAT WHEN AT HOME AMBULATES ON OWN GREAT, THIS IS NOT HER NORMAL/BASELINE. CHANGES OF TEMPERATURE AND HR REPORTED TO DR. NOE. NO OTHER ACUTE CHANGES NOTED. WILL CONTINUE TO MONITOR UNTIL REPORT GIVEN.
[2021-09-23 04:27] LABS: BASOPHILS ABSOLUTE AUTO 0.02 K/mm3 (0.00-0.23); BASOPHILS PERCENT AUTO 0 % (0-2); Hematocrit 30.7 % (33.0-51.0); Hemoglobin 10.1 g/dL (11.5-16.0); LYMPHOCYTES ABSOLUTE AUTO 0.69 K/mm3 (0.84-5.20); LYMPHOCYTES PERCENT AUTO 6 % (21-46); MONOCYTES ABSOLUTE AUTO 0.66 K/mm3 (0.16-1.47); MONOCYTES PERCENT AUTO 6 % (4-13); Mean Corpuscular HGB 29.7 pg (26.0-34.0); Mean Corpuscular HGB Conc 32.9 g/dL (31.5-36.5); Mean Corpuscular Volume 90 fL (80-100); Mean Platelet Volume 10.1 fL (9.1-12.4); Platelet Count 102 K/mm3 (150-400); RDW Coefficient Variation 13.6 % (11.7-14.2); RDW Standard Deviation 44.9 fL (35.1-46.3); White Blood Cell Count 12.05 K/mm3 (4.00-11.30)
[2021-09-23 04:34] LABS: EOSINOPHILS ABSOLUTE AUTO 0.03 K/mm3 (0.00-0.68); EOSINOPHILS PERCENT AUTO 0 % (0-6); IMMATURE GRAN ABSOLUTE AUTO 0.04 K/mm3 (0.00-0.10); IMMATURE GRAN PERCENT AUTO 0 % (0-1); NEUTROPHILS ABSOLUTE AUTO 10.61 K/mm3 (1.96-9.15); NEUTROPHILS PERCENT AUTO 88 % (41-73)
[2021-09-23 04:40] LABS: Albumin, Blood 1.7 g/dL (3.4-5.0); Anion Gap 5 mmol/L (6-16); Blood Urea Nitrogen 24 mg/dL (8-24); Bun/Creatinine Ratio 21.1 (12.0-20.0); CO2, Blood 22 mmol/L (21-32); Calcium, Blood 7.8 mg/dL (8.5-10.1); Chloride, Blood 110 mmol/L (98-108); Creatinine, Blood 1.14 mg/dL (0.40-1.00); Glomerular Filtration Rate 46 (60-); Glucose, Blood 157 mg/dL (70-99); Magnesium, Blood 1.7 mg/dL (1.6-2.4); Phosphorus, Blood 1.6 mg/dL (2.5-4.9); Potassium, Blood 3.8 mmol/L (3.5-5.5); Sodium, Blood 137 mmol/L (136-145)
--- NOTE | 2021-09-23 06:22 | NUR ---
SHIFT SUMMARY ASSUMED CARE OF PT AT 1900. PT IS A/OX4. HEART SOUNDS REGULAR, LUNG SOUNDS ARE VERY TIGHT AND DIMINISHED. PT WAS CONTINENT/INCONTIENT OF BLADDER. URINE IS CRANBERRY RED. PT HAS PAIN IN HER PELVIC AREA WHEN SHE HAS A BM OR URINATES, MEDICATED PER EMAR. PT HR AVERAGED 125 AT 0400 THIS AM, MEDICATED PER EMAR. PT ALSO GOT A TEMP OF 100.4, MEDICATED PER EMAR. THIS EVENING PT BECAME MORE DIFFICULT TO GET TO AND FROM THE BSC. PT WAS A 1P SBA, BUT THIS AM SHE WAS VERY STIFF AND COULDN'T TRANSER WITHOUT EXTENSIVE HELP FROM STAFF. WHEN TAKING HER PILLS THIS AM AROUND 0400 FOR FEVER, PT WAS NOT ABLE TO DO IT HERSELF BECAUSE HER HANDS WERE SHAKING. CALL LIGHT IN REACH, BED IN LOWEST POSITION.
--- NOTE | 2021-09-23 09:22 | NUR ---
AM NOTE PT ALERT AND ORIENTED X4. SHE IS HARD OF HEARING. PER REPORT PT DID NOT GET MUCH REST LAST PM. PT STILL HAVING BLOODY URINE OUTPUT AND REPORTING PELVIC PAIN. DR. MOYA CONSULTED AND WILL MEDICATE FOR PAIN PER EMAR. PER DITCH DIGGER REPORT, PT STILL HAVING EPISODES OF TREMORS AND FEELING GENERALIZED WEAKNESS THAT COMES AND GOES. HR IS MAINTAINING AFIB 110-120, WILL CONTINUE TO MONITOR AND MEDICATE PER EMAR.
--- NOTE | 2021-09-23 11:10 | NUR ---
CARE NOTE PT REPORTS PAIN 06/10, NORCO ORDERED BUT PER PATIENT REPORT SHE IS ALLERGIC TO CODEINE, THIS NURSE CONSULTED PHARMACY AND PER PHARMACY REPORT, WHEN PT TOOK NORCO 1 YEAR AGO THERE WAS NOT DOCUMENTED REACTION. THIS NURSE CALLED DR. MOYA TO CONSULT BUT WAS UNABLE TO REACH, WILL CALL AGAIN TO VERIFY ORDER. WILL CONTINUE TO MONITOR PAIN.
--- NOTE | 2021-09-23 11:41 | NUR ---
CARE NOTE THIS NURSE SPOKE WITH DR MOYA ABOUT NORCO ADMINISTRATION, SAID OK TO GIVE. QUINN CONTINUE TO MONITOR PAIN.
--- NOTE | 2021-09-23 14:15 | NUR ---
CARE NOTE THIS NURSE WAS NOTIFIED BY TELEMETRY MONITORING OF HR SUSTAINING NOW IN 60'S. DR MADE AWARE OF HEART RATE AND ORDERS TO HOLD NEXT PROPANOLOL DOSE AT 2100 IF HR SUSTAINING BELOW 60. THIS NURSE WILL PASS THIS INFORMATION ON TO PERFORMANCE SOLUTIONS SPECIALIST NURSE.
--- NOTE | 2021-09-23 18:46 | NUR ---
SHIFT SUMMARY PT IS ALERT AND ORIENTED X 4. SHE IS HARD OF HEARING AND IS PLEASANT AND COOPERATIVE WITH CARE. PT REMAINS IN AFIB SUSTAINING IN 60'S. WILL PASS ON INSTUCTIONS FROM DR. MOYA TO HOLD PM DOSE OF PROPANOLOL IF HR SUSTAINING BELOW 60. VITAL SIGNS OTHERWISE STABLE. PT CONTINUES TO PRODUCE CRANBERRY COLORED OUTPUT, UTILIZES BEDPAN. POWERGLIDE IN FILIBERTO CONTINUES TO INFUSE NS PER EMAR ORDERS. PT REPORTED PAIN DURING SHIFT IN PELVIC AREA AND WAS MEDICATED PER EMAR, NO REACTION NOTED FROM NORCO ADMINISTRATION. PT CONTINUED TO DENY CHEST PAIN/PRESSURE DURING SHIFT. WAS AD BEDSIDE THIS AFTERNOON. PHYSICAL THERAPIST ASSESSED PATIENT TODAY AND REPORTED PT NEEDS TO BE 2 PERSON SBA. NO OTHER ACUTE CHANGES NOTED. WILL CONTINUE TO MONITOR UNTIL REPORT GIVEN. CALL LIGHT IN REACH.
[2021-09-24 02:12] LABS: Hematocrit 28.4 % (33.0-51.0); Hemoglobin 9.3 g/dL (11.5-16.0); Mean Corpuscular HGB 29.4 pg (26.0-34.0); Mean Corpuscular HGB Conc 32.7 g/dL (31.5-36.5); Mean Corpuscular Volume 90 fL (80-100); Mean Platelet Volume 10.4 fL (9.1-12.4); Platelet Count 116 K/mm3 (150-400); RDW Coefficient Variation 13.5 % (11.7-14.2); RDW Standard Deviation 45.3 fL (35.1-46.3); Red Blood Cell Count 3.16 M/mm3 (3.80-5.20); White Blood Cell Count 9.35 K/mm3 (4.00-11.30)
[2021-09-24 02:27] LABS: Bun/Creatinine Ratio 20.2 (12.0-20.0); Calcium, Blood 7.9 mg/dL (8.5-10.1); Creatinine, Blood 1.09 mg/dL (0.40-1.00); Potassium, Blood 3.7 mmol/L (3.5-5.5)
[2021-09-24 02:28] LABS: Vancomycin, Trough 10.7 ug/mL (5.0-10.0)
--- NOTE | 2021-09-24 05:48 | NUR ---
SHIFT SUMMARY: PT HAD RESTLESS NIGHT, INCONTINENT OF URINE, REMAINS IN AFIB WITH RATE IN 80-90'S BUT DOES INCREASE WITH EXERTION OR UPSET. C/O "HALLUCINATIONS" WHEN SHE SLEEPS AND WAKES CONFUSED AND DISORIENTED, TRYING TO GET OOB. BED ALARM ACTIVE, EMOTIONAL SUPPORT GIVEN, REORIENTS EASILY BUT DOES HAVE SOME LINGERING ANXIETY. BED LOCKED AND LOW, CALL RAMIREZ IN REACH. BEADRYL IV ADMINISTERED PRIOR TO ABT INFUSIONS PER ORDER, NO S/S ALLERGIC REACTION NOTED. MAINTENANCE FLUIDS DECREASED OVERNIGHT PT GETS A LARGE VOLUME WITH TWO IV ABT. PANCHITO MUELLER
--- NOTE | 2021-09-24 07:36 | NUR ---
ASSUMPTION OF CARE NOTE PT ALERT AND ORIENTED X 4. PER REPORT PT HAD MINOR HALUCINATIONS LAST NIGHT AFTER TAKING BENADRYL BUT IS NOW ORIENTED. AFIB W/ HR 106-117, PT ON ROOM AIR BUT SLIGHT WHEEZING NOTED. PT REPORTS PAIN IN PELVIC REGION, WILL MEDICATE PER EMAR/CONTINUE TO MONITOR. ATTENDS CHANGE WITH CRANBERRY OUTPUT CONTINUES. WILL LET KNOW.
--- NOTE | 2021-09-24 11:20 | NUR ---
CARE NOTE WAITING FOR PHARMACY TO SEND ARIMIDEX, REQUEST SENT AT APPROX. 1100.
--- NOTE | 2021-09-24 18:36 | NUR ---
SHIFT SUMMARY PT HAS REMAINED ALERT AND ORIENTED X 4. SHE IS PLEASANT AND COOPERATIVE WITH CARE. SHE REPORTED THAT SHE WAS "FEELING MUCH BETTER TODAY." PT REMAINS IN AFIB THAT SUSTAINS IN 80'S-90'S. VITALS SIGNS STABLE. PT HAS AN EXPIRATORY WHEEZE THAT WAS NOT APPARENT YESTERDAY. PT DENIED FEELING SHORT OF BREATH WELL CHEST TIGHTNESS. WHEEZE IS MINOR BUT STILL AUDIBLE. PT DENIED CHEST PAIN/PRESSURE. PAIN REPORTED THIS AM AND WAS MEDICATED PER EMAR BUT PATIENT DENIED PAIN FOR REST OF SHIFT. PHYSICAL THERAPY WORKED WITH PATIENT TODAY AND PT REMAINS 2 PERSON SBA. WAS AT BEDSIDE THIS AFTERNOON. NO OTHER ACUTE CHANGES NOTED. WILL CONTINUE TO MONITOR UNTIL REPORT GIVEN. CALL LIGHT IN REACH, BED ALARM ON.
[2021-09-25 06:03] LABS: Bun/Creatinine Ratio 17.7 (12.0-20.0); Calcium, Blood 8.6 mg/dL (8.5-10.1); Creatinine, Blood 1.13 mg/dL (0.40-1.00); Potassium, Blood 3.8 mmol/L (3.5-5.5)
--- NOTE | 2021-09-25 06:19 | NUR ---
SHIFT SUMMARY PATIENT IS RESTING IN BED COMFORTABLY. BED IS IN LOW POSITION. CALL LIGHT IS IN REACH. BED ALARM IS ON. VITALS WERE STABLE. NO ACUTE CHANGES DURING MY SHIFT. PATIENT IS ON ROOM AIR AND SATURATING WELL ABOVE 95%. HEART RATE WAS WELL CONTROLLED. PATIENT COMPLAINED OF PAIN AND WAS MEDICATED SEE EMAR. WILL CONTINUE TO MONITOR. REPORT WILL BE GIVEN TO DAY SHIFT RN.
--- NOTE | 2021-09-25 16:32 | NUR ---
TRANSFER REPORT CALLED TO MEDICAL FLOOR NURSE. PATIENT WILL BE TRANSFERING TO ROOM 328. PATIENT IS TRANSFERRED VIA HOSPITAL BED WITH ALL BELONGINGS AND MEDICATIONS. VSS. PATIENT REMAINS ON ROOM AIR.
--- NOTE | 2021-09-25 19:13 | NUR ---
PT TRANSFERRED FROM PCU. SHE IS ALERT AND ORIENTED X 4. DENIES PAIN. SHE DOES NOT APPEAR TO BE IN ACUTE DISTRES. LUNGS CLEAR WITH 02 SAT UPPER 90'S. AUDIBLE WHEEZING NOTED AT TIME WITH EXPIRATION. SHE DENIES SOB. POWERGLIDE INTACT TO LEFT UPPER ARM. SKIN INTACT. LEFT MASECTOMY. SHE IS M[place]ON[place]. SHE IS CALM AND VERY PLEASANT. RESING IN BED.
--- NOTE | 2021-09-26 04:16 | NUR ---
PT RESTING IN BED THROUGH NIGHT. USES CALL LIGHT TO MAKE NEEDS KNOWN, ORIENTED X3-4. PT CONT TO HAVE RED URINE, LOOKS TO BE 50/50 BLOOD/URIN, AWARE. PT MAKES NO C/O PAIN THIS SHIFT. NO OTHER CHANGES TO REPORT. STAFF WILL CONT TO MONITOR.
[2021-09-26 08:35] LABS: Influenza A, PCR NEGATIVE (NEGATIVE); Influenza B, PCR NEGATIVE (NEGATIVE); Resp Syncytial Virus, PCR NEGATIVE (NEGATIVE); SARS-Cov-2 (COVID-19) PCR, MMC NEGATIVE (NEGATIVE)
[2021-09-26] MEDS ORDERED: DILT180 PO (09:55)
[2021-09-26] MEDS ORDERED: LEVFLO500 PO (09:57)
[2021-09-26] MEDS ORDERED: XARELTO20 MG PO (09:59)
== END 2021-09-26 11:44 | DRG 872 ==
LOC: ER 06:57 → PCU 11:28 → MEDS 09-25 16:40
PROVIDERS: Emergency Medicine; Internal Medicine; Nurse Practitioner Acute Care; ADMIT Internal Medicine
DX: A41.9 Sepsis, unspecified organism (principal); N39.0 Urinary tract infection, site not specified; N17.9 Acute kidney failure, unspecified; R65.20 Severe sepsis without septic shock; I10 Essential (primary) hypertension; K21.9 Gastro-esophageal reflux disease without esophagitis; I48.91 Unspecified atrial fibrillation; Z20.822 Contact with and (suspected) exposure to COVID-19; F32.A Depression, unspecified; I27.20 Pulmonary hypertension, unspecified; Z87.442 Personal history of urinary calculi; Z90.710 Acquired absence of both cervix and uterus; Z90.49 Acquired absence of other specified parts of digestive tract; Z98.890 Other specified postprocedural states; Z88.0 Allergy status to penicillin; Z88.2 Allergy status to sulfonamides; Z88.5 Allergy status to narcotic agent; Z88.8 Allergy status to other drugs, medicaments and biological substances
CPT/HCPCS: 0241U; 36415; 70450; 71045; 74176; 80048; 80053; 80069; 80202; 81001; 82550; 83605; 83735; 84443; 84484; 85025; 85027; 87040; 87077; 87086; 87186; 93005; 93010; 93306; 96365; 96366; 96367; 96376; 97110; 97116; 97161; 97166; 97530; 97535; 99285-25; A9270; C1751; J0744; J1200; J3010; J3370; J7030; J7050; J7120

== ENCOUNTER 2022-02-09 16:28 | Emergency (ER) | payer OTHER ==
[~2022-02-09] VITALS: Ht 162.6 cm; Wt 68.0 kg
[~2022-02-09 16:28] MED LIST changes: +Amitriptyline H10 MG PO; +DILT180 PO; +LEVFLO500 PO; +ONDA4ODT MM; +TRIM100 PO; +XARELTO20 MG PO
== END 2022-02-09 19:03 | disposition home or self-care (01) ==
LOC: ER 16:28
DX: S01.01XA Laceration without foreign body of scalp, initial encounter (principal); W22.8XXA Striking against or struck by other objects, initial encounter
CPT/HCPCS: 12002; 70450; 90471; 90714; 99284-25; A9270

== ENCOUNTER 2022-07-27 17:55 | Emergency (ER) | payer OTHER ==
[~2022-07-27] VITALS: Ht 162.6 cm; Wt 70.3 kg
[2022-07-27] MEDS ORDERED: ONDA4ODT MM (21:04)
== END 2022-07-27 21:29 | disposition home or self-care (01) ==
LOC: ER 17:55
DX: J06.9 Acute upper respiratory infection, unspecified (principal); Z79.899 Other long term (current) drug therapy; Z79.01 Long term (current) use of anticoagulants; Z88.5 Allergy status to narcotic agent; Z88.0 Allergy status to penicillin; Z88.2 Allergy status to sulfonamides; Z88.8 Allergy status to other drugs, medicaments and biological substances
CPT/HCPCS: A9270

== ENCOUNTER 2022-12-15 15:46 | Emergency (ER) | payer OTHER ==
[~2022-12-15] VITALS: Ht 165.1 cm; Wt 68.0 kg
[2022-12-15 16:43] LABS: Influenza A, PCR NEGATIVE (NEGATIVE); Influenza B, PCR NEGATIVE (NEGATIVE); Resp Syncytial Virus, PCR NEGATIVE (NEGATIVE); SARS-Cov-2 (COVID-19) PCR, MMC NEGATIVE (NEGATIVE)
== END 2022-12-15 16:40 | disposition home or self-care (01) ==
LOC: ER 15:46
PROVIDERS: Physician Assistant
DX: R05.9 Cough, unspecified (principal); R11.0 Nausea; Z20.822 Contact with and (suspected) exposure to COVID-19; Z88.0 Allergy status to penicillin; Z88.2 Allergy status to sulfonamides; Z88.5 Allergy status to narcotic agent; Z79.899 Other long term (current) drug therapy; Z79.01 Long term (current) use of anticoagulants
CPT/HCPCS: 0241U

== ENCOUNTER 2023-03-12 17:11 | Emergency (ER) | payer OTHER ==
[~2023-03-12] VITALS: Ht 162.6 cm; Wt 74.8 kg
[2023-03-12 17:55] LABS: BASOPHILS ABSOLUTE AUTO 0.04 K/mm3 (0.00-0.23); BASOPHILS PERCENT AUTO 0 % (0-2); EOSINOPHILS ABSOLUTE AUTO 0.06 K/mm3 (0.00-0.68); EOSINOPHILS PERCENT AUTO 1 % (0-6); Hematocrit 40.9 % (33.0-51.0); Hemoglobin 13.5 g/dL (11.5-16.0); IMMATURE GRAN ABSOLUTE AUTO 0.02 K/mm3 (0.00-0.10); IMMATURE GRAN PERCENT AUTO 0 % (0-1); LYMPHOCYTES ABSOLUTE AUTO 2.05 K/mm3 (0.84-5.20); LYMPHOCYTES PERCENT AUTO 20 % (21-46); MONOCYTES ABSOLUTE AUTO 0.68 K/mm3 (0.16-1.47); MONOCYTES PERCENT AUTO 7 % (4-13); Mean Corpuscular HGB 28.2 pg (26.0-34.0); Mean Corpuscular Volume 86 fL (80-100); Mean Platelet Volume 9.9 fL (9.1-12.4); NEUTROPHILS ABSOLUTE AUTO 7.59 K/mm3 (1.96-9.15); NEUTROPHILS PERCENT AUTO 73 % (41-73); Platelet Count 201 K/mm3 (150-400); RDW Coefficient Variation 13.3 % (11.7-14.2); Red Blood Cell Count 4.78 M/mm3 (3.80-5.20); White Blood Cell Count 10.44 K/mm3 (4.00-11.30)
[2023-03-12 18:11] LABS: Albumin, Blood 3.9 g/dL (3.4-5.0); Albumin/Globulin Ratio 1.3 (0.8-1.8); Calcium, Blood 9.3 mg/dL (8.5-10.1); Globulin, Blood 3.1 g/dL (2.2-4.0); Potassium, Blood 3.9 mmol/L (3.5-5.5)
[2023-03-12 20:03] LABS: Source, Urine Foley catheter
[2023-03-12 20:40] LABS: Bilirubin, Urine Neg (Neg); Blood, Urine 3+ (Neg); Glucose Qualitative, Urine Neg (Neg); Ketones, Urine Neg (Neg); Leukocyte Esterase, Urine Neg (Neg); Nitrite, Urine Neg (Neg); Protein, Urine Neg (Neg); Urobilinogen, Urine NORM (Normal)
[2023-03-12 21:04] LABS: Source, Urine Straight Cath
[2023-03-12 21:13] LABS: Bilirubin, Urine Neg (Neg); Blood, Urine 3+ (Neg); Glucose Qualitative, Urine Neg (Neg); Ketones, Urine Neg (Neg); Leukocyte Esterase, Urine Neg (Neg); Nitrite, Urine Neg (Neg); Protein, Urine Neg (Neg); Specific Gravity, Urine 1.015 (1.003-1.022); Urobilinogen, Urine NORM (Normal)
[2023-03-12 21:14] LABS: Appearance, Urine Clear (Clear); Color, Urine Pale Yellow (P-Yellow)
[2023-03-12 21:15] LABS: Bacteria Few /hpf; Squamous Epithelial Cells Rare /hpf (Few); White Blood Cells, Urine 0-2 /hpf (0-5)
[2023-03-12 21:20] LABS: Appearance, Urine Clear (Clear); Color, Urine Yellow (P-Yellow)
[2023-03-12 21:22] LABS: Bacteria Rare /hpf; Squamous Epithelial Cells Rare /hpf (Few); White Blood Cells, Urine 0-2 /hpf (0-5)
== END 2023-03-12 22:04 | disposition home or self-care (01) ==
LOC: ER 17:11
PROVIDERS: Emergency Medicine; Physician Assistant
DX: B34.9 Viral infection, unspecified (principal); Z88.0 Allergy status to penicillin; Z88.2 Allergy status to sulfonamides; Z88.5 Allergy status to narcotic agent; Z79.899 Other long term (current) drug therapy
CPT/HCPCS: 36415; 70450; 71046; 80053; 81001; 83605; 85025; 93005; 93010; 99284-25; J7030; P9612

== ENCOUNTER 2023-03-14 13:49 | Emergency (ER) | payer OTHER ==
[~2023-03-14] VITALS: Ht 162.6 cm; Wt 72.1 kg
[2023-03-14] MEDS ORDERED: LOSA50 (14:32)
[2023-03-14] MEDS ORDERED: VITAMIN D31000 UNI1 PO (14:33)
[2023-03-14 14:35] LABS: BASOPHILS ABSOLUTE AUTO 0.06 K/mm3 (0.00-0.23); BASOPHILS PERCENT AUTO 1 % (0-2); EOSINOPHILS PERCENT AUTO 1 % (0-6); Hemoglobin 13.7 g/dL (11.5-16.0); IMMATURE GRAN ABSOLUTE AUTO 0.02 K/mm3 (0.00-0.10); IMMATURE GRAN PERCENT AUTO 0 % (0-1); LYMPHOCYTES ABSOLUTE AUTO 1.46 K/mm3 (0.84-5.20); LYMPHOCYTES PERCENT AUTO 15 % (21-46); MONOCYTES ABSOLUTE AUTO 0.55 K/mm3 (0.16-1.47); MONOCYTES PERCENT AUTO 6 % (4-13); Mean Corpuscular HGB 28.5 pg (26.0-34.0); Mean Corpuscular HGB Conc 32.6 g/dL (31.5-36.5); Mean Corpuscular Volume 88 fL (80-100); Mean Platelet Volume 10.3 fL (9.1-12.4); NEUTROPHILS ABSOLUTE AUTO 7.48 K/mm3 (1.96-9.15); NEUTROPHILS PERCENT AUTO 77 % (41-73); Platelet Count 197 K/mm3 (150-400); RDW Coefficient Variation 13.6 % (11.7-14.2); RDW Standard Deviation 43.3 fL (35.1-46.3); White Blood Cell Count 9.67 K/mm3 (4.00-11.30)
[2023-03-14 15:06] LABS: Albumin, Blood 3.9 g/dL (3.4-5.0); Albumin/Globulin Ratio 1.3 (0.8-1.8); Bilirubin, Total 0.9 mg/dL (0.1-1.0); Bun/Creatinine Ratio 21.6 (12.0-20.0); Calcium, Blood 9.1 mg/dL (8.5-10.1); Creatinine, Blood 1.62 mg/dL (0.40-1.00); Globulin, Blood 3.1 g/dL (2.2-4.0)
[2023-03-14 16:35] LABS: Source, Urine Clean Catch
[2023-03-14 16:39] LABS: Appearance, Urine Cloudy (Clear); Bilirubin, Urine Neg (Neg); Blood, Urine 2+ (Neg); Color, Urine Yellow (P-Yellow); Glucose Qualitative, Urine Neg (Neg); Ketones, Urine Neg (Neg); Leukocyte Esterase, Urine 3+ (Neg); Nitrite, Urine Neg (Neg); Protein, Urine 1+ (Neg); Urobilinogen, Urine NORM (Normal)
[2023-03-14 16:47] LABS: Bacteria Mod /hpf; Squamous Epithelial Cells Mod /hpf (Few); Transitional Epithelial Cells Few /hpf (0-Rare)
[2023-03-14 17:25] LABS: Calcium, Ionized (POC) 1.11 mmol/L (1.10-1.46); Chloride (POC) 109 mmol/L (98-108); Creatinine (POC) 1.6 mg/dL (0.6-1.0); Glucose (ISTAT POC) 94 mg/dL (70-99); Hemoglobin (POC) 13.6 g/dL (12.0-16.0); Potassium (POC) 3.9 mmol/L (3.5-5.5); Sodium (POC) 142 mmol/L (135-148); Total CO2 (POC) 24 mmol/L (21-32)
[2023-03-14 18:00] VITALS: BP 189/86
== END 2023-03-14 18:18 | disposition home or self-care (01) ==
LOC: ER 13:49
PROVIDERS: Physician Assistant
DX: R41.3 Other amnesia (principal); R79.89 Other specified abnormal findings of blood chemistry; I10 Essential (primary) hypertension; Z88.0 Allergy status to penicillin; Z88.2 Allergy status to sulfonamides; Z88.5 Allergy status to narcotic agent; Z88.8 Allergy status to other drugs, medicaments and biological substances; Z79.899 Other long term (current) drug therapy; Z85.3 Personal history of malignant neoplasm of breast
CPT/HCPCS: 36415; 70450; 80047; 80053; 81001; 83690; 85014; 85025; 87086; 96360; 99285-25; J7030

== ENCOUNTER 2023-12-08 21:19 | Emergency (ER) | payer OTHER ==
[~2023-12-08] VITALS: Ht 162.6 cm; Wt 72.6 kg
[~2023-12-08 21:19] MED LIST changes: +LOSA50; +VITAMIN D31000 UNI1 PO
[2023-12-08 22:32] LABS: Source, Urine Clean Catch
[2023-12-08 22:56] LABS: Bilirubin, Urine Neg (Neg); Blood, Urine 5+ (Neg); Glucose Qualitative, Urine 1+ (Neg); Ketones, Urine 2+ (Neg); Leukocyte Esterase, Urine 2+ (Neg); Nitrite, Urine Neg (Neg); Protein, Urine 2+ (Neg); Specific Gravity, Urine 1.015 (1.003-1.022); Urobilinogen, Urine NORM (Normal)
[2023-12-08 23:06] LABS: Appearance, Urine Hazy (Clear); Color, Urine Yellow (P-Yellow)
[2023-12-08 23:07] LABS: Bacteria Few /hpf; Red Blood Cells, Urine TNTC /hpf (0-2); Squamous Epithelial Cells Few /hpf (Few)
[2023-12-09 01:50] LABS: Albumin, Blood 3.8 g/dL (3.4-5.0); Albumin/Globulin Ratio 1.1 (0.8-1.8); Bilirubin, Total 0.8 mg/dL (0.1-1.0); Calcium, Blood 10.6 mg/dL (8.5-10.1); Creatinine, Blood 1.47 mg/dL (0.40-1.00); Globulin, Blood 3.6 g/dL (2.2-4.0); Potassium, Blood 4.1 mmol/L (3.5-5.5); Total Protein, Blood 7.4 g/dL (6.4-8.2)
[2023-12-09 01:58] LABS: BASOPHILS ABSOLUTE AUTO 0.03 K/mm3 (0.00-0.23); BASOPHILS PERCENT AUTO 0 % (0-2); EOSINOPHILS ABSOLUTE AUTO 0.01 K/mm3 (0.00-0.68); EOSINOPHILS PERCENT AUTO 0 % (0-6); Hematocrit 44.9 % (33.0-51.0); Hemoglobin 14.6 g/dL (11.5-16.0); IMMATURE GRAN PERCENT AUTO 1 % (0-1); LYMPHOCYTES ABSOLUTE AUTO 1.58 K/mm3 (0.84-5.20); LYMPHOCYTES PERCENT AUTO 14 % (21-46); MONOCYTES ABSOLUTE AUTO 0.62 K/mm3 (0.16-1.47); MONOCYTES PERCENT AUTO 5 % (4-13); Mean Corpuscular HGB 28.8 pg (26.0-34.0); Mean Corpuscular HGB Conc 32.5 g/dL (31.5-36.5); Mean Corpuscular Volume 89 fL (80-100); Mean Platelet Volume 9.9 fL (9.1-12.4); NEUTROPHILS ABSOLUTE AUTO 9.24 K/mm3 (1.96-9.15); NEUTROPHILS PERCENT AUTO 80 % (41-73); Platelet Count 188 K/mm3 (150-400); RDW Coefficient Variation 13.1 % (11.7-14.2); RDW Standard Deviation 42.2 fL (35.1-46.3); Red Blood Cell Count 5.07 M/mm3 (3.80-5.20); White Blood Cell Count 11.58 K/mm3 (4.00-11.30)
[2023-12-09 06:08] VITALS: BP 154/71
== END 2023-12-09 06:09 | disposition home or self-care (01) ==
LOC: ER 21:19
PROVIDERS: Emergency Medicine; Student in an Organized Health Care Education/Training Program
DX: N13.2 Hydronephrosis with renal and ureteral calculous obstruction (principal); Z88.0 Allergy status to penicillin; Z88.1 Allergy status to other antibiotic agents; Z88.2 Allergy status to sulfonamides; Z88.5 Allergy status to narcotic agent; Z79.899 Other long term (current) drug therapy
CPT/HCPCS: 51798; 74176; 80053; 81001; 83605; 83690; 83735; 84145; 85025; 87086; 96361; 96374; 96375; 99284-25; A9270; J1885; J2405; J7120

== ENCOUNTER → 2024-06-01 | Outpatient (CLI) | payer OTHER | END | disposition home or self-care (01) | LOC: LAB SHORT 13:40 → LAB 13:40 | DX: R30.0 Dysuria (principal) | CPT/HCPCS: 87086 ==

== ENCOUNTER → 2024-06-11 | Outpatient (CLI) | payer OTHER | LOC: LAB 17:57 → LAB SHORT 17:57 | DX: N89.8 Other specified noninflammatory disorders of vagina (principal) | CPT/HCPCS: 87070; 87205 ==